=== PATIENT | male | born 1955 | race Two or more races ===

== ENCOUNTER 2023-03-03 07:25 | Inpatient (IN) | payer OTHER ==
[~2023-03-03] VITALS: Ht 180.3 cm; Wt 110.7 kg
[2023-03-03] MEDS ORDERED: JANUMET 50-1,01 EACH PO (08:13)
[2023-03-03] MEDS ORDERED: PLAVIX75 MG PO (08:14)
[2023-03-03] MEDS ORDERED: ATACAND16 MG PO (08:14)
[2023-03-03] MEDS ORDERED: SYNTHROID50 MCG PO (08:15)
[2023-03-03] MEDS ORDERED: CRESTOR20 MG PO (08:16)
[2023-03-03] MEDS ORDERED: GRALISE600 MG PO (08:16)
[2023-03-03] MEDS ORDERED: ZETIA10 MG PO (08:16)
[2023-03-03] MEDS ORDERED: SINGULAIR10 MG PO (08:17)
[2023-03-03] MEDS ORDERED: LANTUS (08:18)
[2023-03-03 09:34] LABS: PH,URINE 5.5 (5.0-8.0); URINE APPEARANCE Clear; URINE BILIRRUBIN Negative (NEGATIVE); URINE BLOOD Trace; URINE COLOR Yellow; URINE GLUCOSE Negative (NEGATIVE); URINE LEUKOCYTE Small; URINE NITRATE Negative; URINE PROTEIN Negative (NEGATIVE)
[2023-03-03 09:35] LABS: URINE BACTERIA 15.1 uL (0.0-1933); URINE EPITHELIAL CELLS 3.5 uL (0.0-38.8); URINE RBC 52.4 uL (0.0-20.8)
[2023-03-03 09:48] LABS: HEMATOCRIT 39.2 % (39.0-48.0); MEAN CELL VOLUME 84.4 fL (80.0-100.00); MEAN CORPUSCULAR HEMOGLOBIN 27.7 pg (27.00-32.0); MEAN CORPUSCULAR HGB CONC 32.8 g/dl (32.0-36.0); PLATELET COUNT 207 K/uL (150-450); RED BLOOD COUNT 4.65 M/uL (4.00-6.00); RED CELL DISTRIBUTION WIDTH 14.5 % (11.5-14.5)
[2023-03-03 09:51] LABS: HEMOGLOBIN 12.9 g/dL (13-16.00)
[2023-03-03 10:01] LABS: CALCIUM 9.3 mg/dL (8.5-10.1); CREATININE SERUM 0.85 mg/dL (0.70-1.30); GFR 89.11; POTASSIUM 4.66 mEq/L (3.5-5.1)
[2023-03-03 10:04] LABS: INR 1.07; PARTIAL THROMBOPLASTIN TIME 24.7 SECONDS (22.0-34.0); PROTHROMBIN TIME 11.2 SECONDS (9.0-11.5)
[2023-03-09] MEDS ORDERED: KETOCONAZOLE15 GM (14:40)
[2023-03-10 06:20] LABS: HEMOGLOBIN 12.1 g/dL (13-16.00); MEAN CELL VOLUME 84.8 fL (80.0-100.00); MEAN CORPUSCULAR HEMOGLOBIN 27.6 pg (27.00-32.0); MEAN CORPUSCULAR HGB CONC 32.6 g/dl (32.0-36.0); PLATELET COUNT 193 K/uL (150-450); RED BLOOD COUNT 4.37 M/uL (4.00-6.00); RED CELL DISTRIBUTION WIDTH 14.8 % (11.5-14.5)
[2023-03-10 06:41] LABS: ALBUMIN 3.2 gm/dL (3.4-5.0); CALCIUM 9.2 mg/dL (8.5-10.1); CREATININE SERUM 0.8 mg/dL (0.70-1.30); GFR 95.57; PHOSPHOROUS 2.4 mg/dL (2.5-4.9); POTASSIUM 4.56 mEq/L (3.5-5.1)
== END 2023-03-10 11:18 | disposition home or self-care (01) | DRG 708 ==
LOC: O/R 03-09 04:16 → SURH 03-09 07:00
PROVIDERS: ADMIT Urology; ATTEND Urology
PROC: 8E0W4CZ Robotic Assisted Procedure of Trunk Region, Percutaneous Endoscopic Approach (ICD-10-PCS; 2023-03-09)
PROC: 0TJB8ZZ Inspection of Bladder, Via Natural or Artificial Opening Endoscopic (ICD-10-PCS; 2023-03-09)
PROC: 0VT04ZZ Resection of Prostate, Percutaneous Endoscopic Approach (ICD-10-PCS; principal; 2023-03-09 07:00)
DX: C61 Malignant neoplasm of prostate (principal); Z20.822 Contact with and (suspected) exposure to COVID-19
CPT/HCPCS: 55866; 52000; S2900